=== PATIENT | female | born 1935 | race Caucasian/White ===

== ENCOUNTER → 2023-04-12 10:59 | Outpatient (REF) | payer MEDICARE, SELFPAY | LOC: HWRAD 10:59 | PROVIDERS: ATTENDING PHYSICIAN Internal Medicine; FAMILY PHYSICIAN Family Medicine | DX: Z12.31 Encounter for screening mammogram for malignant neoplasm of breast (principal); Z13.820 Encounter for screening for osteoporosis; Z78.0 Asymptomatic menopausal state | CPT/HCPCS: 77063; 77067; 77080 ==

== ENCOUNTER → 2023-08-01 10:55 | Outpatient (REF) | payer OTHER, SELFPAY | LOC: HWRAD 10:55 | PROVIDERS: ATTENDING PHYSICIAN Family Medicine | DX: M54.50 Low back pain, unspecified (principal) | CPT/HCPCS: 72110 ==

== ENCOUNTER → 2024-01-22 12:52 | Outpatient (REF) | payer OTHER, SELFPAY | LOC: RAD 12:52 | PROVIDERS: ATTENDING PHYSICIAN Family Medicine; REFERRING PHYSICIAN Nurse Practitioner Adult Health | DX: N64.4 Mastodynia (principal); R07.81 Pleurodynia; S29.9XXA Unspecified injury of thorax, initial encounter | CPT/HCPCS: 71101; 76642 ==

== ENCOUNTER → 2024-05-09 11:53 | Outpatient (REF) | payer OTHER, SELFPAY | LOC: HWWDC 11:53 | PROVIDERS: ATTENDING PHYSICIAN Family Medicine | DX: Z12.31 Encounter for screening mammogram for malignant neoplasm of breast (principal) | CPT/HCPCS: 77063; 77067 ==

== ENCOUNTER 2024-10-11 09:17 | Emergency (ER) | payer OTHER, SELFPAY ==
[2024-10-11 09:22] VITALS: BP 157/64
[2024-10-11 10:04] VITALS: BMI 23.4
--- NOTE | 2024-10-11 11:40 | ED.GENMED ---
History of Present Illness
General
Chief Complaint: Musculo-Skeletal Complaint
Source: patient
Time Seen by Provider: 10/11/24 10:25
History of Present Illness
History of Present Illness:
89-year-old female presents to the emergency room for evaluation of pain in her right rib cage and right hip. Patient associates the pain with a syncopal episode she had about 5 to 6 days ago. Patient states she was in her yard speaking with a
neighbor when she began to feel dizzy. She ultimately passed out and evidently fell to the ground. No chest pain or shortness of breath. Patient denies any previous episodes of passing out. She did not experience much pain in the thorax or right
hip immediately but it has been increasing in intensity over the past few days to the point now where she has difficulty getting around. She denies any fever or chills. Patient does take Eliquis because of atrial fibrillation and has been
compliant with it.
Past History
Past History
ED Past Medical History: HTN, Hypercholesterolemia, Hypothyroidism and Other (MVP)
ED Past Surgical History: Orthopedic
Social History
Tobacco: Non-smoker
Personal:
Living: with family
Employment: Retired
Phy Exam
Physical Exam
Physical Exam:
General: Awake, Alert, Oriented X3. No acute distress. Appears stated age
Vitals: unremarkable
Head: Atraumatic
Eyes: Pupils equal, EOMI
Throat: Airway intact, no exudates
Neck: Trachea midline
Chest: There is point tenderness to palpation over the right lateral rib cage approximately over the 8th and 9th rib. No crepitance.
Lungs: Clear and equal b/l
Heart: Regular rate, no murmurs
Abd: Soft, Nontender, No pulsatile mass
Back: No thoracic or lumbar pain to palpation or percussion. No CVA tenderness to percussion
Neuro: Cranial nerves intact, muscle strength equal bilaterally, cerebellar exam normal
Skin: Warm, dry, no rash
Extremities: pulses equal b/l, no edema
Course
Orders/Labs/Results
Orders:
Orders
10/11/24 10:12
CR Hip - RT w/wo Pel 2-3 Vw* Urgent
Comment:
Reason For Exam: pain after syncope/fall
Include a pelvis x-ray?: Yes
CR Ribs-right 3 Vw W/pa Chest* Urgent
Comment:
Reason For Exam: pain after syncope/fall
10/11/24 11:38
Electrocardiogram (*1) Urgent
Reason for Study: Syncope
EKG- Treatment ONCE
10/11/24 11:39
Cardiac Monitoring- Treatment ONCE
10/11/24 11:43
Lidocaine [Lidocaine 4% Patch] 1 patch TOPICAL NOW STA
Apply Lidocaine patch(s) to:: r thorax
10/11/24 12:03
Complete Blood Count/With Diff Urgent
Comprehensive Metabolic Panel Urgent
Abnormal Lab Results
10/11/24
12:03
Hgb 10.5 L g/dL
(12.0-16.0)
Hct 35.2 L %
(37.0-47.0)
MCV 77.4 L fL
(81.0-99.0)
MCH 23.1 L pg
(27.0-31.0)
MCHC 29.8 L g/dL
(33.0-37.0)
RDW 15.9 H %
(11.5-14.5)
Absolute Lymphs (auto) 0.8 L 10^3/uL
(1.2-3.4)
Neutrophils % 81.8 H %
(42.2-75.2)
Lymphocytes % 10.6 L %
(20.5-51.1)
Glucose 104 H mg/dl
(70-99)
10/11/24 12:03
10/11/24 12:03
Vital Signs
Initial and Last Documented VS:
Initial Vital Signs
Temp Pulse Resp BP Pulse Ox
98.3 F 55 16 157/64 98
10/11/24 09:22 10/11/24 09:22 10/11/24 09:22 10/11/24 09:22 10/11/24 09:22
Last Documented Vital Signs
Temp Pulse Resp BP Pulse Ox
98.3 F 56 22 178/51 96
10/11/24 09:22 10/11/24 11:58 10/11/24 11:58 10/11/24 11:56 10/11/24 11:58
MDM/Problems Addressed
Differential Diagnosis Includes:
Rib fracture, pneumothorax, chest wall contusion, hip fracture, bursitis
MDM/Problems Addressed:
Presents with right chest pain right hip pain. She had a fall several days ago. Pain increasing over time. Physical exam shows some tenderness palpation but is otherwise benign. Imaging shows no acute abnormality. Labs are reassuring. Will
treat the patient with Tylenol, ibuprofen and lidocaine patches. She felt better after treatment here. Stable for discharge and outpatient follow-up. Given contact information for Dr. Hicks.
*Pulse Oximetry
SaO2: 98
Oxygen Mode of Delivery: Room air
Patient hypoxic: no
*Critical Care Note
Total Time (30-74mins, 75-104mins- exclusive of procedures): Not Applicable
ED Attending Note
-
Portions of this chart may have been created with voice recognition software.� Occasional wrong word or��sound alike� substitutions may have occurred due to the inherent limitations of voice recognition software.
Discharge Plan
Departure
Patient Disposition: Home (Routine Discharge)
Date of Disposition: 10/11/24
Time of Disposition: 13:00
Patient with high blood pressure during this ER visit?: Yes
Condition: Good
Discharge Problem:
Strain of chest wall, Greater trochanteric bursitis of right hip
Instructions: Costochondritis, Hip Pain ED
Prescriptions:
No Action
ascorbic acid (vitamin C) [Vitamin C] 500 MG tablet
500 mg PO DAILY
atenolol 50 MG tablet
50 mg PO DAILY
omega-3 fatty acids-fish oil 1 EACH capsule
1 ea PO BID
Calcium With D
500 mg PO DAILY
Folic Acid
800 mg PO BID
Levothyroxine
88 mcg PO 6XW
Rx Instructions:
does not take on sundays
multivitamin Tablet
1 tab PO DAILY
atorvastatin 40 mg Tablet
40 mg PO DAILY
ascorbic acid (vitamin C) [Vitamin C] 500 mg Tablet Extended Release
1,000 mg PO Q12H
cinnamon bark [Cinnamon] 500 mg Capsule
1,000 mg PO DAILY
cholecalciferol (vitamin D3) [Vitamin D3] 50 mcg (2,000 unit) Capsule
50 mcg PO DAILY
Eliquis 2.5 mg Tablet
2.5 mg PO BID
melatonin 3 mg Tablet
3 mg PO HS PRN (Reason: insomnia)
Cepacol Sore Throat (vasu-men) 15-3.6 mg Lozenge
1 alex PO Q4HPRN PRN (Reason: sore throat/cough) Qty: 16 0RF
docusate sodium 100 mg Capsule
100 mg PO BID Qty: 20 0RF
oxycodone 5 mg Tablet
5 mg PO Q4HPRN PRN (Reason: moderate pain) Qty: 12 0RF
Referrals:
Emory Hicks MD [Active, Anesthesiology]
Yair Johansen Jr., DO [Family Provider, Internal Medicine]
Activity Restrictions/Additional Instructions:
You can take 650mg of Tylenol and 200mg of ibuprofen for pain. Call Dr. Hicks's office for an appointment.
Interventions
Interventions:
*Risk Screen - Suicide Last Done: 10/11/24 09:22
*Neglect/Abuse Screening Last Done: 10/11/24 09:22
*Nursing Disposition Last Done: 10/11/24 13:14
ED-Musculoskeletal Assessment Last Done: 10/11/24 10:10
Discharge Date and Time
Discharge Date/Time: 10/11/24 13:15
Print Language: BAHAMIAN
[2024-10-11 11:56] VITALS: BP 178/51
[2024-10-11 12:14] LABS: Hematocrit 35.2 % (37.0-47.0); Hemoglobin 10.5 g/dL (12.0-16.0); Mean Corp Hgb Conc. 29.8 g/dL (33.0-37.0); Mean Corpuscular Volume 77.4 fL (81.0-99.0); Nucleated Red Blood Cells % 0 %; Platelet Count 313 10^3/uL (130-400); Red Cell Dist. Width 15.9 % (11.5-14.5)
[2024-10-11] MEDS: LIDOCAINE 4% PATCH 1 PATCH TOPICAL (12:19)
[2024-10-11 12:32] LABS: ALT (SGPT) 15 U/L (0-35); AST (SGOT) 21 U/L (14-36); Albumin 4.3 g/dl (3.5-5.0); Alkaline Phosphatase 89 U/L (38-126); Blood Urea Nitrogen 16 mg/dl (7-17); Calcium 8.8 mg/dl (8.4-10.2); Carbon Dioxide 28 mmol/L (22-30); Chloride 105 mmol/L (98-107); Estimated Creatinine Clearance 44 ml/min; Glucose 104 mg/dl (70-99); Potassium 4.3 mmol/L (3.5-5.1); Sodium 138 mmol/L (135-145); Total Protein 6.5 g/dl (6.3-8.2); eGFR > 60.00
== END 2024-10-11 13:15 | disposition home or self-care (01) ==
LOC: EMR 09:17
PROVIDERS: EMERGENCY PHYSICIAN Emergency Medicine; FAMILY PHYSICIAN Family Medicine
DX: S29.011A Strain of muscle and tendon of front wall of thorax, initial encounter (principal); M70.61 Trochanteric bursitis, right hip; I48.91 Unspecified atrial fibrillation; I10 Essential (primary) hypertension; E78.00 Pure hypercholesterolemia, unspecified; I34.1 Nonrheumatic mitral (valve) prolapse; E03.9 Hypothyroidism, unspecified; Z79.01 Long term (current) use of anticoagulants; X58.XXXA Exposure to other specified factors, initial encounter
CPT/HCPCS: 99284; 71101; 73502; 80053; 85025; 93005

== ENCOUNTER 2024-10-17 12:12 | Inpatient (IN) | payer OTHER, SELFPAY ==
[2024-10-12] VITALS (10 sets, daily range): BP systolic 125–177; BP diastolic 46–101; BMI 23.1; BMI 22.4
[2024-10-12] MEDS: TYLENOL 650 MG PO ×2 (18:00→23:09)
[2024-10-12] MEDS: VALIUM INJECTION 2 MG IV (18:00)
[2024-10-12 18:28] LABS: Hematocrit 32.6 % (37.0-47.0); Hemoglobin 10.0 g/dL (12.0-16.0); Mean Corp Hgb Conc. 30.7 g/dL (33.0-37.0); Mean Corpuscular Volume 76.3 fL (81.0-99.0); Platelet Count 301 10^3/uL (130-400); Red Cell Dist. Width 15.9 % (11.5-14.5)
[2024-10-12 18:53] LABS: Blood Urea Nitrogen 24 mg/dl (7-17); Calcium 8.5 mg/dl (8.4-10.2); Carbon Dioxide 23 mmol/L (22-30); Chloride 109 mmol/L (98-107); Estimated Creatinine Clearance 54 ml/min; Glucose 93 mg/dl (70-99); Potassium 4.4 mmol/L (3.5-5.1); Sodium 137 mmol/L (135-145); eGFR > 60.00
--- NOTE | 2024-10-12 19:58 | ED.GENMED ---
History of Present Illness
General
Chief Complaint: Musculo-Skeletal Complaint
Source: patient
Exam Limitations: none
Time Seen by Provider: 10/12/24 17:11
Nursing documentation reviewed up to this point in time: agreed with
History of Present Illness
History of Present Illness:
Patient presents to ED secondary to worsening right lower back pain over the past 4 days. Patient was evaluated in ED yesterday and discharged home with pain medication, which has not helped the patient. Denies fever or chills. Denies new trauma.
Denies loss of sensation or weakness. Denies urinary or bowel incontinence. Patient does state that she has sciatica pain from time to time, but states that are symptoms are worse and making it difficult for her to ambulate, despite use of her
cane.
Past History
Past History
ED Past Medical History: HTN, Hypercholesterolemia, Hypothyroidism and Other (MVP)
ED Past Surgical History: Orthopedic
Social History
Tobacco: Non-smoker
Personal:
Living: with family
Employment: Retired
Review of Systems
Review of Systems
Allergies reviewed?: Yes
Constitutional: Reports no symptoms
ABD/GI: Reports no symptoms; Denies nausea or vomiting
Musculoskeletal: Reports back pain
Skin: Reports no symptoms
Neurological: Reports no symptoms; Denies weakness
Phy Exam
Physical Exam
Physical Exam:
Physical Exam
General: mild painful distress, not acutely ill. afebrile
Head: nc/at. eomi
Neck: supple. no meningeal signs.
Heart: s1/s2 regular rate and rhythm.
Lungs: no acute respiratory distress. clear bilaterally
Abdomen: normal bowel sounds. not tender.
Back: no midline tenderness. mild right lower back/buttock tenderness to palpation. hip nontender to palpation.
Neuro: alert and oriented x 3. no focal neurological deficits
Skin: no rash
Psychiatric: well kept. interactive and cooperative
Extremities: no edema. no calf tenderness.
Course
Orders/Labs/Results
Orders:
Orders
10/12/24 Breakfast
Regular
At Your Request: Limited Participation
10/12/24 17:46
CT Pelvis W/o Iv Contrast Urgent
Comment:
Reason For Exam: right lower/hip pain
10/12/24 17:47
Acetaminophen [Tylenol] 650 mg PO NOW STA
diazePAM [Valium Injection] 2 mg IV NOW STA
10/12/24 18:12
Basic Metabolic Panel Urgent
Complete Blood Count/No Diff Urgent
10/12/24 20:34
Apixaban [Eliquis] 2.5 mg PO NOW STA
10/12/24 21:23
Admit/Transfer Patient As Directed
Co-Sign Provider:
Level of Care: Observation services
Assign to:: Telemetry
Physician / Group: Nguyễn
Diagnosis: Bursitis / Piriformis Syndrome
Reason for Telemetry: Syncope
Date to Stop Telemetry: 10/14/24
Time to Stop Telemetry: 11:00
10/12/24 21:24
Code Status As Directed
Resuscitation Status: Full Code
PRN Pain Medication Management As Directed
May give lesser potent ordered pain med per pt: Yes
preference::
Protocol:: Medication orders for pain may be administered in a
manner that supports deferring to patient preference
when the pt is:
- Requesting an ordered lesser potent pain medication.
Least to most potent pain medications are defined
as: acetaminophen < NSAID < tramadol < opioids
(morphine, oxycodone, hydromorphone).
- Requesting a lesser dose of the same medication IF
ORDERED.
- Requesting a less intrusive route of administration
if both routes are prescribed by the provider (PO <
IV).
10/12/24 21:35
PRN Pain Medication Management As Directed
May give lesser potent ordered pain med per pt: Yes
preference::
Protocol:: Medication orders for pain may be administered in a
manner that supports deferring to patient preference
when the pt is:
- Requesting an ordered lesser potent pain medication.
Least to most potent pain medications are defined
as: acetaminophen < NSAID < tramadol < opioids
(morphine, oxycodone, hydromorphone).
- Requesting a lesser dose of the same medication IF
ORDERED.
- Requesting a less intrusive route of administration
if both routes are prescribed by the provider (PO <
IV).
10/12/24 22:38
Acetaminophen [Tylenol] 650 mg PO Q4HPRN PRN
Ibuprofen [Motrin] 400 mg PO TID
Ketorolac [Toradol] 10 mg IV Q6HPRN PRN
10/12/24 22:38
ESR [Erythrocyte Sed Rate] Routine
TSH Reflex To Free T4 Routine
Activity As Directed
Activity Level: Ambulate
With Assistance
Heat Application As Directed
Apply heat therapy device to (location):: R buttocks / hip
Device Frequency setting:: 20 minute cycles
Device temperature setting:: Moderate: 100 F (38 C)
I/O [Intake/ Output] As Directed
Frequency: Per unit guidelines
Vital Signs As Directed
Frequency: Per unit guidelines
PT Consult [Pt Eval And Treat] Routine
Activity Level: Ambulate
With Assistance
10/13/24 08:00
Apixaban [Eliquis] 2.5 mg PO BID
Atenolol [Tenormin] 50 mg PO DAILY
10/14/24 11:00
DC Protocol for Telemetry ONCE
Abnormal Lab Results
10/12/24
18:12
Hgb 10.0 L g/dL
(12.0-16.0)
Hct 32.6 L %
(37.0-47.0)
MCV 76.3 L fL
(81.0-99.0)
MCH 23.4 L pg
(27.0-31.0)
MCHC 30.7 L g/dL
(33.0-37.0)
RDW 15.9 H %
(11.5-14.5)
Chloride 109 H mmol/L
(98-107)
BUN 24 H mg/dl
(7-17)
10/12/24 18:12
10/12/24 18:12
Vital Signs
Initial and Last Documented VS:
Initial Vital Signs
Temp Pulse Resp BP Pulse Ox
98.2 F 58 16 143/88 99
10/12/24 16:52 10/12/24 16:52 10/12/24 16:52 10/12/24 16:52 10/12/24 16:52
Last Documented Vital Signs
Temp Pulse Resp BP Pulse Ox
97.8 F 68 13 151/71 99
10/12/24 22:00 10/12/24 22:11 10/12/24 22:11 10/12/24 21:30 10/12/24 22:00
MDM/Problems Addressed
MDM/Problems Addressed:
CT pelvis ordered secondary to patient's persistent pain, which did not reveal any acute findings. Unfortunately, patient still exhibiting significant pain and difficulty bearing weight. As such, patient will be admitted for further eval and
treatment.
*Pulse Oximetry
SaO2: 95
Oxygen Mode of Delivery: Room air
Patient hypoxic: no
*Critical Care Note
Total Time (30-74mins, 75-104mins- exclusive of procedures): Not Applicable
ED Attending Note
-
Portions of this chart may have been created with voice recognition software.� Occasional wrong word or��sound alike� substitutions may have occurred due to the inherent limitations of voice recognition software.
Discharge Plan
Departure
Patient Disposition: Admit
Date of Disposition: 10/12/24
Time of Disposition: 20:35
Admit to: Med/Surg
Presentation/result/management discussed w/ accepting MD/DO: Hospitalist
Discharge Problem:
Intractable back pain
Interventions
Interventions:
*Risk Screen - Suicide Last Done: 10/12/24 22:15
*General Assessment Last Done: 10/12/24 16:52
*Neglect/Abuse Screening Last Done: 10/12/24 22:15
*ED- Fall Risk Assessment Last Done: 10/12/24 16:52
*Nursing Disposition Last Done: 10/12/24 22:15
ED-Musculoskeletal Assessment Last Done: 10/12/24 16:52
Discharge Date and Time
Discharge Date/Time: 10/12/24 22:39
[2024-10-12] MEDS: ELIQUIS 2.5 MG PO (20:56)
--- NOTE | 2024-10-12 21:27 | HPS.HSE ---
Family Physician
-
Family Physician: Yair Johansen Jr.
Chief Complaint
-
R Hip Pain
History of Present Illness
Patient is an 89y F with PMH significant for hypertension, hypothyroidism and PA-Fib (occurred post-op only) who presents to ED complaining of right hip pain x 2 days. Patient states that she had a syncopal episode one week ago after gardening
outside and standing up to talk with a neighbor. Patient was told that she did not fall or impact the ground as the neighbor caught her and lowered her gently. She regained consciousness after moments. Patient felt fairly well for several days
thereafter - though she notes that she was 'taking it easy'.
Monday evening she woke to use the bathroom and noted sudden and severe pain in the R buttocks / lateral hip area. She was able to get to the bathroom and back and fell back to sleep. She again 'took it easy' on ; however, her pain did
not seem to improve. The following AM (Monday) her pain persisted and she presented to the ED for further evaluation. She denies any additional fall, injury, trauma, syncope, etc. Evaluation in the ED was unremarkable including normal x-rays of
the hip / pelvis.
Patient was discharged to home; however, her pain continued / progressed prompting her to return again this evening for further evaluation.
Medical History
Past Medical History
Past Medical History: Reports Other
Additional Past Medical History:
Hypertension
Hypothyroidism
Osteoporosis
Colon Polyps / Tubular Adenoma
Paroxysmal / Post-Op Atrial Fibrillation
Past Surgical History: Reports Other
Additional Past Surgical History:
Appendectomy
Thyroidectomy
Left Lumpectomy
Partial Hysterectomy
Left Ankle ORIF
Right Humerus ORIF
Social History
Tobacco: Non-smoker
Alcohol: None
Drug: None
Family History
Family History: Not pertinent
Allergies / Home Medications
Allergies reflects when Allergies were last updated in [employer]
Home Medications with original date entered in [employer]
Allergy/Medication List:
Allergies
Allergy/AdvReac Type Severity Reaction Status Date / Time
Cephalosporins Allergy Pt unsure Verified 10/12/24 16:51
of allergy
chlorpheniramine (From Allergy Tongue Verified 10/12/24 16:51
Contac Cold-Flu Day and Swelling
Night)
codeine Allergy nausea/vomi Verified 10/12/24 16:51
ting
morphine Allergy NAUSEA,VOMI Verified 10/12/24 16:51
TING
Penicillins Allergy hives/rash Verified 10/12/24 16:51
phenylephrine (From Contac Allergy Tongue Verified 10/12/24 16:51
Cold-Flu Day and Night) Swelling
pramoxine Allergy Rash Verified 10/12/24 16:51
Sulfa (Sulfonamide Allergy Rash Verified 10/12/24 16:51
Antibiotics)
sulfite Allergy Rash to Verified 10/12/24 16:51
sulfates
Home Medications
Folic Acid 800 mg PO DAILY 08/19/09
Levothyroxine 88 mcg PO DAILY 08/19/09
ascorbic acid (vitamin C) 500 mg tablet (Vitamin C) 1,000 mg PO DAILY 08/19/09
atenolol 50 mg tablet 50 mg PO DAILY 08/19/09
omega-3 fatty acids-fish oil 300 mg-1,000 mg capsule 1 ea PO BID 08/19/09
apixaban 2.5 mg tablet (Eliquis) 2.5 mg PO BID 10/23/21
atorvastatin 40 mg tablet 40 mg PO DAILY 10/23/21
cholecalciferol (vitamin D3) 50 mcg (2,000 unit) capsule (Vitamin D3) 50 mcg PO DAILY 10/23/21
multivitamin 1 tab PO DAILY 10/23/21
biotin 5,000 mcg chewable tablet 5,000 mcg PO DAILY 10/12/24
cyanocobalamin (vitamin B-12) 1,000 mcg tablet 1,000 mcg PO DAILY 10/12/24
Review of Systems
-
History Source: Patient
A 12 point ROS was completed and negative except as noted: Yes
Constitutional: Denies Fever or Chills
Respiratory: Denies Cough or Trouble Breathing
Cardiac: Denies Chest Pain or Palpitations
Abdomen/GI: Denies Abdominal Pain, Nausea, Vomiting or Diarrhea
: Denies Dysuria or Frequency
Musculoskeletal: Reports Joint Pain and Muscle Pain; Denies Edema
Neurological: Denies Dizzy or Headache
Psych: Denies Depression or Anxiety
Physical Exam
Vital Signs
Vital Signs
Temp Pulse Resp BP Pulse Ox
98.2 F 66 18 173/53 99
10/12/24 16:52 10/12/24 21:15 10/12/24 21:15 10/12/24 21:00 10/12/24 21:15
Physical Exam
General: Other (89y F in no acute distress.)
HEENT: Moist mucous membranes
Respiratory: Clear; No Wheezes, Rales or Rhonchi
Cardiac: S1/S2 and Regular Rhythm; No Murmur
GI: Soft, Non Tender, Non Distended and Normal Bowel Sounds
Musculoskeletal: No Clubbing, No Cyanosis, No Edema and Other (Pinpoint tenderness over mid-buttocks / piriformis area on the R as well as over the R greater trochanter region. )
Neuro: AO x 3
Laboratory Results
-
10/12/24 18:12
10/12/24 18:12
Impression/Plan
-
A/P: Patient is an 89y F with PMH significant for hypertension and hypothyroidism who presents to ED complaining of R hip pain x several days.
Right Hip Pain
Piriformis Syndrome
Right Greater Trochanteric Bursitis
- Observe overnight for further evaluation and treatment.
- NSAIDs ATC for short course, application of heat, etc.
- Tylenol / Toradol PRN.
- PT eval in the AM.
- Follow for improvement in symptoms.
- Consider ortho eval - inpatient v outpatient for possible injection, etc if symptoms worsen or persist.
Syncope
- Probable vasovagal syncope after working in the garden all day and then standing to speak with her neighbor.
- No events since that time.
- Monitor on telemetry overnight - though I suspect this will be unremarkable.
- Follow for any new / recurrent symptoms.
Benign Hypertension
- Stable. Continue atenolol with holding parameters.
Paroxysmal Atrial Fibrillation
- Stable. Continue atenolol and Eliquis.
Hypothyroidism
- Stable. Continue current T4 replacement.
- Update TFTs.
DVT Prophylaxis: On Eliquis
Code Status: Full
[2024-10-12] MEDS: MOTRIN 400 MG PO (23:53)
[2024-10-12] MEDS: MELATONIN 5 MG PO (23:53)
[2024-10-13] VITALS (8 sets, daily range): BP systolic 102–176; BP diastolic 44–68; PULSE 54
[2024-10-13] MEDS: DILAUDID 0.25 MG IV (02:16)
[2024-10-13] MEDS: SYNTHROID 88 MCG PO (06:30)
[2024-10-13] MEDS: TYLENOL 650 MG PO ×4 (06:31→21:07)
[2024-10-13] MEDS: TENORMIN 50 MG PO (09:24)
[2024-10-13] MEDS: PROTONIX 40 MG PO (09:24)
[2024-10-13] MEDS: ULTRAM 25 MG PO ×2 (09:24→22:55)
[2024-10-13] MEDS: ELIQUIS 2.5 MG PO ×2 (09:24→21:08)
[2024-10-13] MEDS: MOTRIN PO (09:25)
--- NOTE | 2024-10-13 09:52 | W.PN.HOSP.TC ---
Today's Communication/Plan
-
see a/p
Assessment / Plan
Assessment / Plan
Physical Exam
General: no acute distress, appears comfortable at this time
HEENT: Moist mucous membranes
Respiratory: Clear; No Wheezes, Rales or Rhonchi
Cardiac: S1/S2 and Regular Rhythm; No Murmur
GI: Soft, Non Tender, Non Distended and Normal Bowel Sounds
Musculoskeletal: No Clubbing, No Cyanosis, No Edema and Other (Pinpoint tenderness over mid-buttocks / piriformis area on the R as well as over the R greater trochanter region.)
Neuro: AO x 3 conversant coherent
Psych: calm
A/P: Patient is an 89y F with PMH significant for hypertension and hypothyroidism who presents to ED complaining of R hip pain x several days.
Right Hip Pain
Piriformis Syndrome
Right Greater Trochanteric Bursitis
Possible Neuropathy, pt reports hx sciatica
- Observe overnight for further evaluation and treatment.
- NSAIDs ATC for short course, application of heat, etc.
- Tylenol / Tramadol PRN.
- PT/OT eval appreciated home services
- Gabapentin 100 mg TID
-check [facility] X-ray
Syncope
- Probable vasovagal syncope after working in the garden all day and then standing to speak with her neighbor.
- No events since that time.
- Monitor on telemetry
Benign Hypertension
- Stable. Continue atenolol with holding parameters.
Paroxysmal Atrial Fibrillation
- Stable. Continue atenolol and Eliquis.
Hypothyroidism
- Stable. Continue current T4 replacement.
- Updated TFTs notes mild TSH elevation but normal T4, repeat in 1 month recommended
DVT Prophylaxis: On Eliquis
Code Status: Full
I spent a total of 40 minutes with the patient or on the floor. More than 50% of this time involved counseling and coordination of care.
Anticipated Discharge: 24 - 48 hours
Subjective/Interval History
-
Date of Service: October 13, 2024
no acute distress, sitting up comfortably in chair, reports improvement in RLE pain but not resolved.
Objective Data
-
Vital Signs:
Vital Signs
Temp Pulse Resp BP Pulse Ox
97.9 F 62 16 176/62 97
10/13/24 07:27 10/13/24 09:24 10/13/24 07:27 10/13/24 09:24 10/13/24 07:27
I&O
10/12/24 10/13/24 10/14/24
06:59 06:59 06:59
Intake Total 480 / 480
Output Total 200 / 200
Balance 280 / 280
[2024-10-13] MEDS: NEURONTIN 100 MG PO ×2 (15:03→21:08)
[2024-10-13] MEDS: MOTRIN 400 MG PO ×2 (15:03→21:07)
--- NOTE | 2024-10-13 15:19 | CM ---
Patient seen at bedside in [facility]. Patient states that she lives alone in a one story home in [facility] Patient has a cane at home and she uses the [email or web address] pharmacy. Patient given OBS/CHAVEZ form and signed form placed on chart. Patient
indicated that she has a daughter and son both live at a distance. Patient PCP is Dr. Johansen. CM will continue to follow for discharge planning needs.
Plan; home with no needs vs home with VN.
[2024-10-13] MEDS: MELATONIN 5 MG PO (21:08)
[2024-10-14] VITALS (7 sets, daily range): BP systolic 126–157; BP diastolic 44–62; PULSE 58
[2024-10-14] MEDS: TYLENOL 650 MG PO ×5 (00:10→15:36)
[2024-10-14] MEDS: SYNTHROID 88 MCG PO (06:04)
--- NOTE | 2024-10-14 07:04 | W.PN.HOSP.TC ---
Today's Communication/Plan
-
pain control
PT/OT
trial low dose baclofen
cont gabapentin ibuprofen Tylenol
Assessment / Plan
Assessment / Plan
Physical Exam
General: no acute distress, appears comfortable at this time
HEENT: Moist mucous membranes
Respiratory: Clear; No Wheezes, Rales or Rhonchi
Cardiac: S1/S2 and Regular Rhythm; No Murmur
GI: Soft, Non Tender, Non Distended and Normal Bowel Sounds
Musculoskeletal: No Clubbing, No Cyanosis, No Edema and Other (Pinpoint tenderness over mid-buttocks / piriformis area on the R as well as over the R greater trochanter region.)
Neuro: AO x 3 conversant coherent
Psych: calm
A/P: Patient is an 89y F with PMH significant for hypertension and hypothyroidism who presents to ED complaining of R hip pain x several days.
Right Hip Pain
Piriformis Syndrome
Right Greater Trochanteric Bursitis
Possible Neuropathy, pt reports hx sciatica
- Tylenol NSAIDs ATC for short course, application of heat, etc.
- Tramadol PRN.
- PT/OT eval appreciated home services
- Gabapentin 100 mg TID
- Baclofen 2.5 mg TID
- Lumbar X-ray appreciated no acute abn's
Syncope
- Probable vasovagal syncope after working in the garden all day and then standing to speak with her neighbor.
- No events since that time.
- Monitor on telemetry
Benign Hypertension
- Stable. Continue atenolol with holding parameters.
Paroxysmal Atrial Fibrillation
- Stable. Continue atenolol and Eliquis.
Hypothyroidism
- Stable. Continue current T4 replacement.
- Updated TFTs notes mild TSH elevation but normal T4, repeat in 1 month recommended
DVT Prophylaxis: On Eliquis
Code Status: Full
I spent a total of 40 minutes with the patient or on the floor. More than 50% of this time involved counseling and coordination of care.
Anticipated Discharge: 24 - 48 hours
Subjective/Interval History
-
Date of Service: October 14, 2024
Reports some improvement in pain/mobility. No pain at rest.
Objective Data
-
Vital Signs:
Vital Signs
Temp Pulse Resp BP Pulse Ox
97.5 F 51 18 126/55 95
10/14/24 03:24 10/14/24 03:24 10/14/24 03:24 10/14/24 03:24 10/14/24 03:24
I&O
10/13/24 10/14/24 10/15/24
06:59 06:59 06:59
Intake Total 480 / 480 1140 / 1140
Output Total 200 / 200
Balance 280 / 280 1140 / 1140
[2024-10-14] MEDS: PROTONIX 40 MG PO (07:59)
[2024-10-14] MEDS: TENORMIN PO (08:06)
[2024-10-14] MEDS: MOTRIN 400 MG PO ×3 (08:09→22:17)
[2024-10-14] MEDS: ELIQUIS 2.5 MG PO ×2 (08:09→20:06)
[2024-10-14] MEDS: NEURONTIN 100 MG PO ×3 (08:10→22:18)
[2024-10-14] MEDS: LIORESAL 2.5 MG PO ×2 (15:36→22:17)
[2024-10-14] MEDS: MELATONIN 5 MG PO (22:19)
[2024-10-14] MEDS: TYLENOL PO (22:46)
[2024-10-15] VITALS (8 sets, daily range): BP systolic 125–170; BP diastolic 56–66; PULSE 63; O2SAT 97
[2024-10-15] MEDS: TYLENOL PO ×3 (01:15→20:29)
[2024-10-15] MEDS: SYNTHROID 88 MCG PO (05:12)
--- NOTE | 2024-10-15 06:59 | W.PN.HOSP.TC ---
Today's Communication/Plan
-
pain control
Gabapentin switched to 300 mg HS and baclofen canceled d/t daytime sleepiness/lethargy
PT/OT out of bed to chair
trial steroids Prednisone 40 mg daily started
Assessment / Plan
Assessment / Plan
Physical Exam
General: no acute distress, appears comfortable at this time
HEENT: Moist mucous membranes
Respiratory: Clear; No Wheezes, Rales or Rhonchi
Cardiac: S1/S2 and Regular Rhythm; No Murmur
GI: Soft, Non Tender, Non Distended and Normal Bowel Sounds
Musculoskeletal: No Clubbing, No Cyanosis, No Edema and Other (Pinpoint tenderness over mid-buttocks / piriformis area on the R as well as over the R greater trochanter region.)
Neuro: AO x 3 conversant coherent
Psych: calm
A/P: Patient is an 89y F with PMH significant for hypertension and hypothyroidism who presents to ED complaining of R hip pain x several days.
Right Hip Pain
Piriformis Syndrome
Right Greater Trochanteric Bursitis
Possible Neuropathy, pt reports hx sciatica
- Tylenol NSAIDs ATC for short course, application of heat, etc.
- Tramadol PRN.
- PT/OT eval appreciated home services
- Gabapentin 100 mg TID switched to 300 mg HS d/t daytime sedation/lethargy
- Baclofen 2.5 mg TID attempted but discontinued d/t daytime sedation/lethargy
- Lumbar X-ray appreciated no acute abn's
- trial steroids started 40 mg daily
Syncope
- Probable vasovagal syncope after working in the garden all day and then standing to speak with her neighbor.
- No events since that time.
- Monitor on telemetry
Benign Hypertension
- Stable. Continue atenolol with holding parameters.
Paroxysmal Atrial Fibrillation
- Stable. Continue atenolol and Eliquis.
Hypothyroidism
- Stable. Continue current T4 replacement.
- Updated TFTs notes mild TSH elevation but normal T4, repeat in 1 month recommended
DVT Prophylaxis: On Eliquis
Code Status: Full
I spent a total of 40 minutes with the patient or on the floor. More than 50% of this time involved counseling and coordination of care.
Anticipated Discharge: Within 24 hours
Subjective/Interval History
-
Date of Service: October 15, 2024
Reporting lethargy weakness. Right hip pain persists with exertion, resolves with rest.
Objective Data
-
Labs:
Laboratory Results
10/15/24
06:00
WBC Pending
Hgb Pending
Hct Pending
Plt Count Pending
Sodium Pending
Potassium Pending
Chloride Pending
Carbon Dioxide Pending
BUN Pending
Creatinine Pending
Glucose Pending
Calcium Pending
Vital Signs:
Vital Signs
Temp Pulse Resp BP Pulse Ox
98.3 F 59 18 141/63 97
10/15/24 03:22 10/15/24 03:22 10/15/24 03:22 10/15/24 03:22 10/15/24 03:22
I&O
10/13/24 10/14/24 10/15/24
06:59 06:59 06:59
Intake Total 480 / 480 1140 / 1140 480 / 480
Output Total 200 / 200
Balance 280 / 280 1140 / 1140 480 / 480
[2024-10-15 08:01] LABS: Hematocrit 32.6 % (37.0-47.0); Hemoglobin 9.7 g/dL (12.0-16.0); Mean Corp Hgb Conc. 29.8 g/dL (33.0-37.0); Mean Corpuscular Volume 78.4 fL (81.0-99.0); Platelet Count 302 10^3/uL (130-400); Red Cell Dist. Width 16.1 % (11.5-14.5)
[2024-10-15] MEDS: LIDOCAINE 4% PATCH 1 PATCH TOPICAL (08:12)
[2024-10-15] MEDS: ELIQUIS 2.5 MG PO ×2 (08:13→20:29)
[2024-10-15] MEDS: PROTONIX 40 MG PO (08:13)
[2024-10-15] MEDS: LIORESAL 2.5 MG PO (08:13)
[2024-10-15] MEDS: NEURONTIN 100 MG PO (08:14)
[2024-10-15] MEDS: TYLENOL 650 MG PO ×4 (08:15→23:15)
[2024-10-15] MEDS: MOTRIN 400 MG PO ×3 (08:15→22:01)
[2024-10-15] MEDS: TENORMIN PO (08:16)
[2024-10-15 08:42] LABS: Blood Urea Nitrogen 18 mg/dl (7-17); Calcium 8.2 mg/dl (8.4-10.2); Carbon Dioxide 25 mmol/L (22-30); Chloride 110 mmol/L (98-107); Estimated Creatinine Clearance 44 ml/min; Glucose 92 mg/dl (70-99); Magnesium 2.3 mg/dl (1.6-2.3); Potassium 4.6 mmol/L (3.5-5.1); Sodium 141 mmol/L (135-145); eGFR > 60.00
--- NOTE | 2024-10-15 10:13 | VNURNOTE ---
Home Health Liaison met with patient at bedside to discuss [facility] nurse/therapy, visits, schedule and homebound status. Patient is agreeable and understands that visits at home will be 2-3 x per week to assess and teach medical management. Patient
aware and agreeable to pet policy.
Patient is aware that [facility] will contact them for start of care in 1-2 days after discharge from .
[facility] referral completed in [facility].
--- NOTE | 2024-10-15 10:48 | CM ---
Spoke with patient she requested [facility] .
[facility] Liaison notified of referral .
She said her will drive her home.
PLAN Home with [facility]
[2024-10-15] MEDS: DELTASONE 40 MG PO (13:29)
[2024-10-15 14:26] LABS: Iron 26 ug/dl (37-170)
[2024-10-15 14:35] LABS: Total Iron Binding Capacity 407 ug/dl (265-497)
[2024-10-15 15:03] LABS: Ferritin 7.8 ng/ml (11.1-264.0)
[2024-10-15 15:34] LABS: Folate > 20.0 ng/ml (2.76-20); Vitamin B12 372 pg/ml (239-931)
[2024-10-15] MEDS: NEURONTIN 300 MG PO (20:32)
[2024-10-15] MEDS: MELATONIN 5 MG PO (22:01)
[2024-10-16] VITALS (7 sets, daily range): BP systolic 98–186; BP diastolic 53–68; PULSE 60; O2SAT 97
[2024-10-16] MEDS: ULTRAM 25 MG PO ×2 (01:54→21:47)
[2024-10-16] MEDS: TYLENOL 650 MG PO ×5 (04:00→19:05)
[2024-10-16] MEDS: SYNTHROID 88 MCG PO (04:00)
--- NOTE | 2024-10-16 07:15 | W.PN.HOSP.TC ---
Today's Communication/Plan
-
cont pain control
steroids
PT/OT
check Lumbar MRI
B12 Iron supplementation
Assessment / Plan
Assessment / Plan
Physical Exam
General: no acute distress, appears comfortable at this time
HEENT: Moist mucous membranes
Respiratory: Clear; No Wheezes, Rales or Rhonchi
Cardiac: S1/S2 and Regular Rhythm; No Murmur
GI: Soft, Non Tender, Non Distended and Normal Bowel Sounds
Musculoskeletal: No Clubbing, No Cyanosis, No Edema. Tenderness over mid-buttocks / piriformis area on the R as well as over the R greater trochanter region. Paraspinal tenderness
Neuro: AO x 3 conversant coherent
Psych: calm
A/P: Patient is an 89y F with PMH significant for hypertension and hypothyroidism who presents to ED complaining of R hip pain x several days.
Right Hip Pain
Piriformis Syndrome
Right Greater Trochanteric Bursitis
Possible Neuropathy, pt reports hx sciatica
- Tylenol NSAIDs ATC for short course, application of heat, etc.
- Tramadol PRN.
- PT/OT eval appreciated home services
- Gabapentin 100 mg TID switched to 300 mg HS d/t daytime sedation/lethargy
- Baclofen 2.5 mg TID attempted but discontinued d/t daytime sedation/lethargy
- Lumbar X-ray appreciated no acute abn's
- trial steroids started 40 mg daily, no improvement noted so far, symptoms seem be worsening, reports new onset numbness RLE raphael, pain shooting from back rt hip down RLE
-checking Lumbar MRI
Syncope
- Probable vasovagal syncope after working in the garden all day and then standing to speak with her neighbor.
- No events since that time.
- Monitor on telemetry
Benign Hypertension
- Stable. Continue atenolol with holding parameters.
Paroxysmal Atrial Fibrillation
- Stable. Continue atenolol and Eliquis.
-consistently NSR, ok to dc radiation monitor
Hypothyroidism
- Stable. Continue current T4 replacement.
- Updated TFTs notes mild TSH elevation but normal T4, repeat in 1 month recommended
Iron Deficiency Anemia
B12 low normal levels
-Iron supplementation
-B12 supplementation
PT/OT appreciated Home services
DVT Prophylaxis: On Eliquis
Code Status: Full
discussed with patient and patient's Viet
I spent a total of 40 minutes with the patient or on the floor. More than 50% of this time involved counseling and coordination of care.
Anticipated Discharge: 24 - 48 hours
Subjective/Interval History
-
Date of Service: October 16, 2024
Rt hip pain persists with exertion, now notes new numbness RLE raphael. Pain appears to be worsening.
Objective Data
-
Labs:
Laboratory Results
10/16/24
06:00
WBC Pending
Hgb Pending
Hct Pending
Plt Count Pending
Sodium Pending
Potassium Pending
Chloride Pending
Carbon Dioxide Pending
BUN Pending
Creatinine Pending
Glucose Pending
Calcium Pending
Vital Signs:
Vital Signs
Temp Pulse Resp BP Pulse Ox
97.6 F 64 16 159/64 95
10/16/24 03:14 10/16/24 03:14 10/16/24 03:14 10/16/24 03:14 10/16/24 03:14
I&O
10/15/24 10/16/24 10/17/24
06:59 06:59 06:59
Intake Total 480 / 480 870 / 870
Balance 480 / 480 870 / 870
[2024-10-16 07:57] LABS: Hematocrit 31.5 % (37.0-47.0); Hemoglobin 9.4 g/dL (12.0-16.0); Mean Corp Hgb Conc. 29.8 g/dL (33.0-37.0); Mean Corpuscular Volume 78.4 fL (81.0-99.0); Platelet Count 323 10^3/uL (130-400); Red Cell Dist. Width 16.2 % (11.5-14.5)
[2024-10-16 08:25] LABS: Blood Urea Nitrogen 22 mg/dl (7-17); Calcium 8.3 mg/dl (8.4-10.2); Carbon Dioxide 23 mmol/L (22-30); Chloride 110 mmol/L (98-107); Estimated Creatinine Clearance 51 ml/min; Glucose 90 mg/dl (70-99); Magnesium 2.3 mg/dl (1.6-2.3); Potassium 4.5 mmol/L (3.5-5.1); Sodium 141 mmol/L (135-145); eGFR > 60.00
[2024-10-16] MEDS: BenGay-Like 1 APPLIC TOPICAL ×4 (09:24→21:46)
[2024-10-16] MEDS: ELIQUIS 2.5 MG PO ×2 (09:26→19:05)
[2024-10-16] MEDS: PROTONIX 40 MG PO (09:27)
[2024-10-16] MEDS: DELTASONE 40 MG PO (09:27)
[2024-10-16] MEDS: MOTRIN 400 MG PO ×3 (09:28→21:47)
[2024-10-16] MEDS: TENORMIN 50 MG PO (09:28)
--- NOTE | 2024-10-16 10:09 | CM ---
Patient she requested [facility] .
[facility] Liaison notified of referral .
Pain medicine as needed.
She said her will drive her home.
PLAN Home with [facility]
[2024-10-16] MEDS: FEOSOL 325 MG PO (13:22)
[2024-10-16] MEDS: VITAMIN B-12 1000 MCG PO (13:22)
[2024-10-16] MEDS: NEURONTIN 300 MG PO (21:46)
[2024-10-16] MEDS: SENOKOT-S 1 TABLET PO (21:47)
[2024-10-16] MEDS: MELATONIN 5 MG PO (21:47)
[2024-10-17] VITALS (7 sets, daily range): BP systolic 146–196; BP diastolic 59–105; PULSE 53; O2SAT 96
[2024-10-17] MEDS: TYLENOL PO (01:08)
[2024-10-17] MEDS: ULTRAM 25 MG PO (03:13)
[2024-10-17] MEDS: TYLENOL 650 MG PO ×5 (03:14→19:43)
[2024-10-17] MEDS: SYNTHROID 88 MCG PO (03:14)
--- NOTE | 2024-10-17 07:08 | W.PN.HOSP.TC ---
Today's Communication/Plan
-
cont pain control
TLSO brace prn comfort
taper steroids
PT/OT
tentatively planned for JORDAN Mon 10/21 with Shannonvandanatasneem david Sat 10/19 morning in preparation for procedure
Assessment / Plan
Assessment / Plan
Physical Exam
General: no acute distress, appears comfortable at this time
HEENT: Moist mucous membranes
Respiratory: Clear; No Wheezes, Rales or Rhonchi
Cardiac: S1/S2 and Regular Rhythm; No Murmur
GI: Soft, Non Tender, Non Distended and Normal Bowel Sounds
Musculoskeletal: No Clubbing, No Cyanosis, No Edema. Right buttocks/paraspinal tenderness. Positive Straight Leg test RLE. Right raphael numbness
Neuro: AO x 3 conversant coherent
Psych: calm
A/P: Patient is an 89y F with PMH significant for hypertension and hypothyroidism who presents to ED complaining of R hip pain x several days.
Right Hip/buttocks Pain radiating down RLE
Disc Herniation L4/5
Exacerbation Sciatica, known hx
Severe Lumbar Spinal Stenosis
Piriformis Syndrome, Right Greater Trochanteric Bursitis Less likely
- Tylenol NSAIDs ATC for short course, application of heat, etc.
- Tramadol PRN.
- PT/OT eval appreciated home services
- Gabapentin 100 mg TID switched to 300 mg HS d/t daytime sedation/lethargy
- Baclofen 2.5 mg TID attempted but discontinued d/t daytime sedation/lethargy
- Lumbar X-ray appreciated no acute abn's
- trial steroids started 40 mg daily, unclear benefit, steroid induced confusion agitation noted, tapered to 30 mg daily
Lumbar MRI appreciated
-severe Lumbar Spinal Canal Stenosis
-Rt posterolateral disc extrusion and extruded disc fragment L4/5 encroaching Rt L4 nerve root
Discussed w/ neurosx, surgical intervention not warranted given intact strength, can re-consider evaluation if not improvement with JORDAN (epidural steroid injection)
Discussed with IR, Yogi needs to be on hold for 4 doses (two days) before JORDAN. Earliest date JORDAN may be performed at this time is Monday10/21/24. Yogi to cont for now, Hold 10/19/24 Morning SCD dvt ppx.
TLSO brace prn for comfort
Syncope
- Probable vasovagal syncope after working in the garden all day and then standing to speak with her neighbor.
- No new events since that time.
- No syncope events during stay so far.
Hypertension
- Continue atenolol with holding parameters.
- monitor and titrate antihypertensive regimen as necessary.
- Pain and steroids likely to contribute to elevated BP values
- Would not treat aggressively unless symptomatic
Paroxysmal Atrial Fibrillation
-Stable. Continue atenolol and Eliquis.
-consistently NSR
Hypothyroidism
- Stable. Continue current T4 replacement.
- Updated TFTs notes mild TSH elevation but normal T4, repeat in 1 month recommended
Iron Deficiency Anemia
B12 low normal levels
-Iron supplementation
-B12 supplementation
PT/OT appreciated Home services
DVT Prophylaxis: On Eliquis
Code Status: Full
I spent a total of 47 minutes with the patient or on the floor. More than 50% of this time involved counseling and coordination of care.
Anticipated Discharge: > 48 hours
Subjective/Interval History
-
Date of Service: October 17, 2024
RLE hip pain persists with exertion. Patient also notes feeling confused. Mild moderate agitation noted, suspect steroid induced. Re-directable however. Patient notably calmer and more pleasant following extensive discussion of her case, all
questions answered.
Objective Data
-
Labs:
Laboratory Results
10/17/24
06:39
WBC Pending
Hgb Pending
Hct Pending
Plt Count Pending
Sodium Pending
Potassium Pending
Chloride Pending
Carbon Dioxide Pending
BUN Pending
Creatinine Pending
Glucose Pending
Calcium Pending
Vital Signs:
Vital Signs
Temp Pulse Resp BP Pulse Ox
98.4 F 91 16 175/105 97
10/17/24 03:39 10/17/24 03:39 10/17/24 03:39 10/17/24 03:39 10/17/24 03:39
I&O
10/16/24 10/17/24 10/18/24
06:59 06:59 06:59
Intake Total 870 / 870 1480 / 1480
Balance 870 / 870 1480 / 1480
[2024-10-17 08:22] LABS: Hematocrit 29.6 % (37.0-47.0); Hemoglobin 8.8 g/dL (12.0-16.0); Mean Corp Hgb Conc. 29.7 g/dL (33.0-37.0); Mean Corpuscular Volume 79.1 fL (81.0-99.0); Platelet Count 329 10^3/uL (130-400); Red Cell Dist. Width 16.2 % (11.5-14.5)
[2024-10-17 09:06] LABS: Blood Urea Nitrogen 27 mg/dl (7-17); Calcium 8.2 mg/dl (8.4-10.2); Carbon Dioxide 24 mmol/L (22-30); Chloride 111 mmol/L (98-107); Estimated Creatinine Clearance 51 ml/min; Glucose 82 mg/dl (70-99); Magnesium 2.2 mg/dl (1.6-2.3); Potassium 4.5 mmol/L (3.5-5.1); Sodium 140 mmol/L (135-145); eGFR > 60.00
[2024-10-17] MEDS: DELTASONE 40 MG PO (10:06)
[2024-10-17] MEDS: BenGay-Like 1 APPLIC TOPICAL ×4 (10:06→21:30)
[2024-10-17] MEDS: PROTONIX 40 MG PO (10:07)
[2024-10-17] MEDS: SENOKOT-S 1 TABLET PO ×2 (10:08→21:28)
[2024-10-17] MEDS: VITAMIN B-12 1000 MCG PO (10:09)
[2024-10-17] MEDS: FEOSOL 325 MG PO (10:09)
[2024-10-17] MEDS: MOTRIN 400 MG PO ×3 (10:09→21:28)
[2024-10-17] MEDS: ELIQUIS 2.5 MG PO ×2 (10:09→19:43)
[2024-10-17] MEDS: MIRALAX 17 GRAMS PO (10:10)
[2024-10-17] MEDS: TENORMIN 50 MG PO (10:19)
[2024-10-17 13:55] LABS: INR 1.05; PT 14.2 Sec (11.4-14.6)
--- NOTE | 2024-10-17 16:08 | CM ---
Pt changed to inpatient status . IMM copy given to pt.IMM reviewed with pt and signed IMM n chart.
Pt medicated for pain.
Pt requested [facility] which was set up by liaison [facility] Cisneros
PLAN Home with [facility]
[2024-10-17] MEDS: NEURONTIN 300 MG PO (21:28)
[2024-10-17] MEDS: MELATONIN 5 MG PO (21:28)
[2024-10-18] MEDS: TYLENOL PO ×2 (01:02→04:02)
[2024-10-18] MEDS: SYNTHROID 88 MCG PO (06:16)
[2024-10-18 07:55] VITALS: BP 131/56
[2024-10-18] MEDS: BenGay-Like 1 APPLIC TOPICAL ×4 (08:30→21:24)
[2024-10-18] MEDS: ELIQUIS 2.5 MG PO ×2 (08:31→20:23)
[2024-10-18] MEDS: FEOSOL 325 MG PO (08:31)
[2024-10-18] MEDS: TYLENOL 650 MG PO ×5 (08:31→23:10)
[2024-10-18] MEDS: SENOKOT-S 1 TABLET PO (08:31)
[2024-10-18] MEDS: VITAMIN B-12 1000 MCG PO (08:31)
[2024-10-18] MEDS: DELTASONE 30 MG PO (08:32)
[2024-10-18] MEDS: MIRALAX 17 GRAMS PO (08:32)
[2024-10-18] MEDS: PROTONIX 40 MG PO (08:33)
[2024-10-18] MEDS: TENORMIN 50 MG PO (08:33)
[2024-10-18] MEDS: MOTRIN 400 MG PO ×3 (08:33→21:24)
[2024-10-18 10:39] LABS: Hematocrit 32.2 % (37.0-47.0); Hemoglobin 9.7 g/dL (12.0-16.0); Mean Corp Hgb Conc. 30.1 g/dL (33.0-37.0); Mean Corpuscular Volume 78.7 fL (81.0-99.0); Platelet Count 345 10^3/uL (130-400); Red Cell Dist. Width 16.8 % (11.5-14.5)
[2024-10-18 10:59] LABS: Blood Urea Nitrogen 29 mg/dl (7-17); Calcium 8.7 mg/dl (8.4-10.2); Carbon Dioxide 25 mmol/L (22-30); Chloride 109 mmol/L (98-107); Estimated Creatinine Clearance 38 ml/min; Glucose 120 mg/dl (70-99); Magnesium 2.0 mg/dl (1.6-2.3); Potassium 4.2 mmol/L (3.5-5.1); Sodium 141 mmol/L (135-145); eGFR > 60.00
[2024-10-18 12:07] VITALS: BP 137/59; PULSE 56
--- NOTE | 2024-10-18 15:44 | CM ---
Reinforced pt that she is inpatient . IMM letter given.
PT indicates out pt PT . Pt said she can not drive and is frail.
[facility] set up for her as requested.
Pain meds as needed.
sander and polisher list given.
PLAN Home with [facility]
[2024-10-18 15:55] VITALS: BP 101/61
--- NOTE | 2024-10-18 16:13 | W.PN.HOSP.TC ---
Today's Communication/Plan
-
remains anxious about pain
will consider JORDAN if medically warranted
continue pain control
possible discharge tomorrow
Assessment / Plan
Assessment / Plan
Right Hip/buttocks Pain radiating down RLE
Rt posterolateral disc extrusion and extruded disc fragment L4/5 encroaching Rt L4 nerve root
Exacerbation Sciatica, known hx
Severe Lumbar Spinal Stenosis
Piriformis Syndrome, Right Greater Trochanteric Bursitis Less likely
- Tylenol NSAIDs ATC for short course, application of heat, etc.
- Tramadol PRN.
- PT/OT eval appreciated home services
- Gabapentin 100 mg TID switched to 300 mg HS d/t daytime sedation/lethargy
- Baclofen 2.5 mg TID attempted but discontinued d/t daytime sedation/lethargy
- trial steroids started 40 mg daily, unclear benefit, steroid induced confusion agitation noted, tapered to 30 mg daily
- MR lumbar spine images reviewed
- Dr johnson discussed with neuro sx and no indication for sx.
- JODRAN will be considered if pain not improved , currently patient able to walk with walker. Patient questioning why JORDAN is not warranted and discussed that it is solely meant for pain control and currently with systemic pain medication patient have
control on symptoms.
Syncope
- Probable vasovagal syncope after working in the garden all day and then standing to speak with her neighbor.
- No new events since that time.
- No syncope events during stay so far.
Essential Hypertension
- Continue atenolol with holding parameters.
- monitor and titrate antihypertensive regimen as necessary.
- Pain and steroids likely to contribute to elevated BP values
- Would not treat aggressively unless symptomatic
Paroxysmal Atrial Fibrillation
-Stable. Continue atenolol and Eliquis.
-consistently NSR
Hypothyroidism
- Stable. Continue current T4 replacement.
- Updated TFTs notes mild TSH elevation but normal T4, repeat in 1 month recommended
Iron Deficiency Anemia
B12 low normal levels
-Iron supplementation
-B12 supplementation
DVT Prophylaxis: On Eliquis
Code Status: Full
Discussion with patient regarding etiology and prognosis for pain. Patient remains anxious about, not able to take care of herself although clearly demonstrates with physical therapy appropriate strength and capability. No family in the area to
provide help. apparently is frail. Visiting nurse services has been arranged by case management. I will re-evaluate tomorrow for potential discharge, patient of note questioning for need of JORDAN although with current level of pain control
JORDAN may not be warranted
Total time spent : 54 mins
Anticipated Discharge: 24 - 48 hours
Subjective/Interval History
-
Date of Service: October 18, 2024
pain is improved
have some numbness at leg
Objective Data
-
Labs:
Laboratory Results
10/18/24
10:29
WBC 13.2 H
Hgb 9.7 L
Hct 32.2 L
Plt Count 345
Sodium 141
Potassium 4.2
Chloride 109 H
Carbon Dioxide 25
BUN 29 H
Creatinine 0.8
Glucose 120 H
Calcium 8.7
Vital Signs:
Vital Signs
Temp Pulse Resp BP Pulse Ox
97.8 F 65 16 131/56 95
10/18/24 07:55 10/18/24 08:33 10/18/24 07:55 10/18/24 08:33 10/18/24 10:48
I&O
10/17/24 10/18/24 10/19/24
06:59 06:59 06:59
Intake Total 1480 / 1480 1060 / 1060
Balance 1480 / 1480 1060 / 1060
Review of Systems
-
Respiratory: Reports No Symptoms
Cardiac: Reports No Symptoms
Abdomen/GI: Reports No Symptoms
Physical Exam
-
General: Negative Appears in Distress
HEENT: Negative Oxygen
Neuro: Awake, Alert and Oriented
Psych: Calm
[2024-10-18] MEDS: SENOKOT-S PO (20:22)
[2024-10-18] MEDS: NEURONTIN 300 MG PO (21:24)
[2024-10-18] MEDS: MELATONIN 5 MG PO (21:24)
[2024-10-18 23:23] VITALS: BP 155/62
[2024-10-19] MEDS: TYLENOL 650 MG PO ×5 (04:59→21:37)
[2024-10-19] MEDS: SYNTHROID 88 MCG PO (05:00)
[2024-10-19 07:10] VITALS: BP 167/71
[2024-10-19] MEDS: DELTASONE 30 MG PO (07:48)
[2024-10-19] MEDS: PROTONIX 40 MG PO (07:48)
[2024-10-19] MEDS: BenGay-Like 1 APPLIC TOPICAL ×4 (07:49→21:37)
[2024-10-19] MEDS: FEOSOL 325 MG PO (07:49)
[2024-10-19] MEDS: ELIQUIS 2.5 MG PO (07:49)
[2024-10-19] MEDS: VITAMIN B-12 1000 MCG PO (07:49)
[2024-10-19] MEDS: MOTRIN 400 MG PO ×3 (07:49→21:37)
[2024-10-19] MEDS: TENORMIN 50 MG PO (07:49)
[2024-10-19 07:53] LABS: Hematocrit 28.0 % (37.0-47.0); Hemoglobin 8.4 g/dL (12.0-16.0); Mean Corp Hgb Conc. 30.0 g/dL (33.0-37.0); Mean Corpuscular Volume 77.8 fL (81.0-99.0); Platelet Count 316 10^3/uL (130-400); Red Cell Dist. Width 16.5 % (11.5-14.5)
[2024-10-19] MEDS: MIRALAX PO (07:54)
[2024-10-19] MEDS: SENOKOT-S PO ×2 (07:55→19:23)
[2024-10-19 08:51] LABS: Blood Urea Nitrogen 25 mg/dl (7-17); Calcium 8.1 mg/dl (8.4-10.2); Carbon Dioxide 26 mmol/L (22-30); Chloride 109 mmol/L (98-107); Estimated Creatinine Clearance 51 ml/min; Glucose 78 mg/dl (70-99); Magnesium 2.1 mg/dl (1.6-2.3); Potassium 4.1 mmol/L (3.5-5.1); Sodium 140 mmol/L (135-145); eGFR > 60.00
--- NOTE | 2024-10-19 09:28 | W.PN.HOSP.TC ---
Today's Communication/Plan
-
JORDAN on monday
discharge home HH after
continue steroids/pain meds
continue PT
Assessment / Plan
Assessment / Plan
Right Hip/buttocks Pain radiating down RLE
Rt posterolateral disc extrusion and extruded disc fragment L4/5 encroaching Rt L4 nerve root
Exacerbation Sciatica, known hx
Severe Lumbar Spinal Stenosis
Piriformis Syndrome, Right Greater Trochanteric Bursitis Less likely
- Tylenol NSAIDs ATC for short course, application of heat, etc.
- Tramadol PRN.
- PT/OT eval appreciated home services
- Gabapentin 100 mg TID switched to 300 mg HS d/t daytime sedation/lethargy
- Baclofen 2.5 mg TID attempted but discontinued d/t daytime sedation/lethargy
- trial steroids started 40 mg daily, unclear benefit, steroid induced confusion agitation noted, tapered to 30 mg daily
- MR lumbar spine images reviewed
- Dr johnson discussed with neuro sx and no indication for sx.
- Patient continues to complain pain and inabiltiy to get around, able to do actiivity with PT. no good family support to help patient and not qualified for rehab. Discussed JORDAN on monday and potentially may not help her symptoms. patient wanting
to move forward with JORDAN. Eliquis held from evening today.
Syncope
- Probable vasovagal syncope after working in the garden all day and then standing to speak with her neighbor.
- No new events since that time.
- No syncope events during stay so far.
Essential Hypertension
- Continue atenolol with holding parameters.
- monitor and titrate antihypertensive regimen as necessary.
- Pain and steroids likely to contribute to elevated BP values
- Would not treat aggressively unless symptomatic
Paroxysmal Atrial Fibrillation
-Stable. Continue atenolol and Eliquis.
-consistently NSR
Hypothyroidism
- Stable. Continue current T4 replacement.
- Updated TFTs notes mild TSH elevation but normal T4, repeat in 1 month recommended
Iron Deficiency Anemia
B12 low normal levels
-Iron supplementation
-B12 supplementation
DVT Prophylaxis: On Eliquis
Code Status: Full
Discussion with patient regarding etiology and prognosis for pain. Patient remains anxious about, not able to take care of herself although clearly demonstrates with physical therapy appropriate strength and capability. No family in the area to
provide help. apparently is frail. Visiting nurse services has been arranged by case management. I will re-evaluate tomorrow for potential discharge, patient of note questioning for need of JORDAN although with current level of pain control
JORDAN may not be warranted
Total time spent : 54 mins
Anticipated Discharge: 24 - 48 hours
Subjective/Interval History
-
Date of Service: October 19, 2024
continues to complain pain
continues to remain anxious about activity
no constipation/nausea/vomiting
Objective Data
-
Labs:
Laboratory Results
10/19/24
06:04
WBC 9.8
Hgb 8.4 L
Hct 28.0 L
Plt Count 316
Sodium 140
Potassium 4.1
Chloride 109 H
Carbon Dioxide 26
BUN 25 H
Creatinine 0.6
Glucose 78
Calcium 8.1 L
Vital Signs:
Vital Signs
Temp Pulse Resp BP Pulse Ox
98.5 F 65 18 167/71 94
10/19/24 07:10 10/19/24 07:10 10/19/24 07:10 10/19/24 07:10 10/19/24 07:10
I&O
10/18/24 10/19/24 10/20/24
06:59 06:59 06:59
Intake Total 1060 / 1060 960 / 960
Balance 1060 / 1060 960 / 960
Review of Systems
-
Respiratory: Reports No Symptoms
Cardiac: Reports No Symptoms
Abdomen/GI: Reports No Symptoms
Physical Exam
-
General: Pain
HEENT: Negative Oxygen
Neuro: Awake, Alert, Oriented and No Motor Deficits
[2024-10-19 11:34] VITALS: BP 159/64
--- NOTE | 2024-10-19 15:31 | CM ---
Addendum entered by Monica Cotton 10/20/24 10:56:
Late Entry
woods manager received a call from [place] at [facility] at 4:25pm, 10/20/24 and he stated that [facility] received the Rescind notice and [facility] appeal has been closed, patient will be issued a new IMM closer to discharge in case wants to appeal
discharge.
Original Note:
Case management office received a notice that patient was appealing her discharge, behavioral health case manager made Maeve at [facility] aware that patient was not discharged and patient called in error, [facility] requesting a rescind letter which was faxed to [facility]
, patient made aware that rescind notice sent to [facility]. which states 'A new IM/Notice will be issued to patient when discharging'.
Plan; To follow with patient progress.
[2024-10-19 15:34] VITALS: BP 168/63
[2024-10-19] MEDS: APRESOLINE 10 MG IV (16:47)
[2024-10-19 17:25] VITALS: BP 166/68
[2024-10-19] MEDS: ALPRAZOLAM ODT 0.25 MG PO (17:59)
[2024-10-19] MEDS: PROCARDIA XL (EXTENDED RELEASE) 30 MG PO (18:01)
[2024-10-19 18:37] VITALS: BP 114/52
[2024-10-19] MEDS: NEURONTIN 300 MG PO (21:37)
[2024-10-19] MEDS: MELATONIN 5 MG PO (21:37)
[2024-10-19] MEDS: TYLENOL PO (23:08)
[2024-10-19 23:31] VITALS: BP 134/51
[2024-10-20] MEDS: TYLENOL PO ×2 (05:24→23:12)
[2024-10-20] MEDS: SYNTHROID 88 MCG PO (06:10)
[2024-10-20 07:55] VITALS: BP 159/66
--- NOTE | 2024-10-20 08:49 | W.PN.HOSP.TC ---
Today's Communication/Plan
-
for JORDAN tomorrow
make procardia scheduled
continue PT
Assessment / Plan
Assessment / Plan
Right Hip/buttocks Pain radiating down RLE
Rt posterolateral disc extrusion and extruded disc fragment L4/5 encroaching Rt L4 nerve root
Exacerbation Sciatica, known hx
Severe Lumbar Spinal Stenosis
Piriformis Syndrome, Right Greater Trochanteric Bursitis Less likely
- Tylenol NSAIDs ATC for short course, application of heat, etc.
- Tramadol PRN.
- PT/OT eval appreciated home services
- Gabapentin 100 mg TID switched to 300 mg HS d/t daytime sedation/lethargy
- Baclofen 2.5 mg TID attempted but discontinued d/t daytime sedation/lethargy
- trial steroids started 40 mg daily, unclear benefit, steroid induced confusion agitation noted, tapered to 30 mg daily
- MR lumbar spine images reviewed
- Dr johnson discussed with neuro sx and no indication for sx.
- 10/19 Patient continues to complain pain and inabiltiy to get around, able to do actiivity with PT. no good family support to help patient and not qualified for rehab. Discussed JORDAN on monday and potentially may not help her symptoms. patient
wanting to move forward with JORDAN. Eliquis held from evening today.
Syncope
- Probable vasovagal syncope after working in the garden all day and then standing to speak with her neighbor.
- No new events since that time.
- No syncope events during stay so far.
Essential Hypertension
HTN urgency
- Patient SBP in 170s and having headache yesterday
- Continue atenolol with holding parameters.
- added procardial xl 30mg/bid to reigmen
- maintain on iv hydralazine 10mg prn for sbp > 160
Paroxysmal Atrial Fibrillation
-Stable. Continue atenolol and Eliquis.
-consistently NSR
Hypothyroidism
- Stable. Continue current T4 replacement.
- Updated TFTs notes mild TSH elevation but normal T4, repeat in 1 month recommended
Iron Deficiency Anemia
B12 low normal levels
-Iron supplementation
-B12 supplementation
DVT Prophylaxis: On Eliquis
Code Status: Full
Discussion with patient regarding etiology and prognosis for pain. Patient remains anxious about, not able to take care of herself although clearly demonstrates with physical therapy appropriate strength and capability. No family in the area
to provide help. apparently is frail. Visiting nurse services has been arranged by case management. I will re-evaluate tomorrow for potential discharge, patient of note questioning for need of JORDAN although with current level of pain
control JORDAN may not be warranted
10/19 Agained a lengthy discussion about the patient ongoing pain, patient remains anxious and hesitant to do activity with fear. Will go ahead with JORDAN as patient hopeful for some recovery.
Anticipated Discharge: Within 24 hours
Subjective/Interval History
-
Date of Service: October 20, 2024
back pain is better
remains anxious and stressed out
Objective Data
-
Labs:
Laboratory Results
10/20/24
06:00
WBC Pending
Hgb Pending
Hct Pending
Plt Count Pending
Sodium Pending
Potassium Pending
Chloride Pending
Carbon Dioxide Pending
BUN Pending
Creatinine Pending
Glucose Pending
Calcium Pending
Vital Signs:
Vital Signs
Temp Pulse Resp BP Pulse Ox
98.4 F 72 18 159/66 94
10/20/24 07:55 10/20/24 07:55 10/20/24 07:55 10/20/24 07:55 10/20/24 07:55
I&O
10/19/24 10/20/24 10/21/24
06:59 06:59 06:59
Intake Total 960 / 960 1100 / 1100
Balance 960 / 960 1100 / 1100
Review of Systems
-
Respiratory: Reports No Symptoms
Cardiac: Reports No Symptoms
Abdomen/GI: Reports No Symptoms
Physical Exam
-
General: Pain
HEENT: Negative Oxygen
Neuro: Awake, Alert, Oriented and No Motor Deficits
[2024-10-20] MEDS: FEOSOL 325 MG PO (09:19)
[2024-10-20] MEDS: DELTASONE 30 MG PO (09:19)
[2024-10-20] MEDS: MIRALAX 17 GRAMS PO (09:19)
[2024-10-20] MEDS: BenGay-Like 1 APPLIC TOPICAL ×4 (09:19→22:09)
[2024-10-20] MEDS: PROTONIX 40 MG PO (09:19)
[2024-10-20] MEDS: TENORMIN 50 MG PO (09:20)
[2024-10-20] MEDS: VITAMIN B-12 1000 MCG PO (09:20)
[2024-10-20] MEDS: TYLENOL 650 MG PO ×4 (09:20→22:08)
[2024-10-20] MEDS: PROCARDIA XL (EXTENDED RELEASE) 30 MG PO ×2 (09:20→19:37)
[2024-10-20] MEDS: SENOKOT-S 1 TABLET PO ×2 (09:20→19:37)
[2024-10-20] MEDS: MOTRIN 400 MG PO ×3 (09:20→22:09)
[2024-10-20 09:57] LABS: Hematocrit 32.4 % (37.0-47.0); Hemoglobin 9.8 g/dL (12.0-16.0); Mean Corp Hgb Conc. 30.2 g/dL (33.0-37.0); Mean Corpuscular Volume 77.3 fL (81.0-99.0); Platelet Count 361 10^3/uL (130-400); Red Cell Dist. Width 17.1 % (11.5-14.5)
[2024-10-20 10:09] LABS: Blood Urea Nitrogen 23 mg/dl (7-17); Calcium 8.2 mg/dl (8.4-10.2); Carbon Dioxide 24 mmol/L (22-30); Chloride 108 mmol/L (98-107); Estimated Creatinine Clearance 44 ml/min; Glucose 119 mg/dl (70-99); Magnesium 2.0 mg/dl (1.6-2.3); Potassium 3.5 mmol/L (3.5-5.1); Sodium 141 mmol/L (135-145); eGFR > 60.00
[2024-10-20 15:55] VITALS: BP 123/53
[2024-10-20] MEDS: NEURONTIN 300 MG PO (22:08)
[2024-10-20] MEDS: MELATONIN 5 MG PO (22:08)
[2024-10-20 23:16] VITALS: BP 130/48
[2024-10-21] MEDS: TYLENOL PO (05:35)
[2024-10-21] MEDS: SYNTHROID 88 MCG PO (05:57)
[2024-10-21 07:10] VITALS: BP 145/71
--- NOTE | 2024-10-21 08:57 | W.PN.HOSP.TC ---
Today's Communication/Plan
-
for JORDAN of lumbar spine today
dischargeable home with HH after
Assessment / Plan
Assessment / Plan
Right Hip/buttocks Pain radiating down RLE
Rt posterolateral disc extrusion and extruded disc fragment L4/5 encroaching Rt L4 nerve root
Exacerbation Sciatica, known hx
Severe Lumbar Spinal Stenosis
Piriformis Syndrome, Right Greater Trochanteric Bursitis Less likely
- Tylenol NSAIDs ATC for short course, application of heat, etc.
- Tramadol PRN.
- PT/OT eval appreciated home services
- Gabapentin 100 mg TID switched to 300 mg HS d/t daytime sedation/lethargy
- Baclofen 2.5 mg TID attempted but discontinued d/t daytime sedation/lethargy
- trial steroids started 40 mg daily, unclear benefit, steroid induced confusion agitation noted, tapered to 30 mg daily
- MR lumbar spine images reviewed
- Dr johnson discussed with neuro sx and no indication for sx.
- 10/19 Patient continues to complain pain and inabiltiy to get around, able to do actiivity with PT. no good family support to help patient and not qualified for rehab. Discussed JORDAN on monday and potentially may not help her symptoms. patient
wanting to move forward with JORDAN. Eliquis held from evening today.
Syncope
- Probable vasovagal syncope after working in the garden all day and then standing to speak with her neighbor.
- No new events since that time.
- No syncope events during stay so far.
Essential Hypertension
HTN urgency - resolved
- Continue atenolol with holding parameters.
- added procardial xl 30mg/bid to regimen
- maintain on iv hydralazine 10mg prn for sbp > 160
Paroxysmal Atrial Fibrillation
-Stable. Continue atenolol and Eliquis.
-consistently NSR
Hypothyroidism
- Stable. Continue current T4 replacement.
- Updated TFTs notes mild TSH elevation but normal T4, repeat in 1 month recommended
Iron Deficiency Anemia
B12 low normal levels
-Iron supplementation
-B12 supplementation
DVT Prophylaxis: On Eliquis
Code Status: Full
Discussion with patient regarding etiology and prognosis for pain. Patient remains anxious about, not able to take care of herself although clearly demonstrates with physical therapy appropriate strength and capability. No family in the area
to provide help. apparently is frail. Visiting nurse services has been arranged by case management. I will re-evaluate tomorrow for potential discharge, patient of note questioning for need of JORDAN although with current level of pain
control JORDAN may not be warranted
10/19 Agained a lengthy discussion about the patient ongoing pain, patient remains anxious and hesitant to do activity with fear. Will go ahead with JORDAN as patient hopeful for some recovery.
Anticipated Discharge: Today
Subjective/Interval History
-
Date of Service: October 21, 2024
back pain is tolerable
denies of having any issues
Objective Data
-
Labs:
Laboratory Results
10/21/24
08:16
WBC Pending
Hgb Pending
Hct Pending
Plt Count Pending
Sodium Pending
Potassium Pending
Chloride Pending
Carbon Dioxide Pending
BUN Pending
Creatinine Pending
Glucose Pending
Calcium Pending
Vital Signs:
Vital Signs
Temp Pulse Resp BP Pulse Ox
98.4 F 76 16 145/71 95
10/21/24 07:10 10/21/24 07:10 10/21/24 07:10 10/21/24 07:10 10/21/24 07:10
I&O
10/20/24 10/21/24 10/22/24
06:59 06:59 06:59
Intake Total 1100 / 1100 1560 / 1560
Balance 1100 / 1100 1560 / 1560
Review of Systems
-
Respiratory: Reports No Symptoms
Cardiac: Reports No Symptoms
Abdomen/GI: Reports No Symptoms
Physical Exam
-
General: Pain
HEENT: Negative Oxygen
Neuro: Awake, Alert, Oriented and No Motor Deficits
[2024-10-21] MEDS: PROTONIX 40 MG PO (09:06)
[2024-10-21] MEDS: DELTASONE 30 MG PO (09:06)
[2024-10-21] MEDS: BenGay-Like 1 APPLIC TOPICAL ×4 (09:06→21:35)
[2024-10-21] MEDS: MOTRIN 400 MG PO ×3 (09:07→21:34)
[2024-10-21] MEDS: FEOSOL 325 MG PO (09:08)
[2024-10-21] MEDS: VITAMIN B-12 1000 MCG PO (09:08)
[2024-10-21] MEDS: TYLENOL 650 MG PO ×4 (09:08→19:35)
[2024-10-21] MEDS: PROCARDIA XL (EXTENDED RELEASE) 30 MG PO ×2 (09:11→19:34)
[2024-10-21] MEDS: TENORMIN 50 MG PO (09:11)
[2024-10-21] MEDS: MIRALAX PO (09:12)
[2024-10-21] MEDS: SENOKOT-S 1 TABLET PO ×2 (09:12→19:35)
[2024-10-21 09:19] LABS: Hematocrit 31.7 % (37.0-47.0); Hemoglobin 9.7 g/dL (12.0-16.0); Mean Corp Hgb Conc. 30.6 g/dL (33.0-37.0); Mean Corpuscular Volume 77.1 fL (81.0-99.0); Platelet Count 368 10^3/uL (130-400); Red Cell Dist. Width 17.6 % (11.5-14.5)
[2024-10-21 09:52] LABS: Blood Urea Nitrogen 26 mg/dl (7-17); Calcium 8.5 mg/dl (8.4-10.2); Carbon Dioxide 23 mmol/L (22-30); Chloride 108 mmol/L (98-107); Estimated Creatinine Clearance 51 ml/min; Glucose 75 mg/dl (70-99); Magnesium 2.2 mg/dl (1.6-2.3); Potassium 4.2 mmol/L (3.5-5.1); Sodium 139 mmol/L (135-145); eGFR > 60.00
[2024-10-21 12:09] VITALS: BP 111/44
[2024-10-21 15:10] VITALS: BP 146/56
[2024-10-21 16:08] VITALS: BP 153/60; PULSE 65
--- NOTE | 2024-10-21 19:18 | CM ---
IMM given signed on chart.
PT indicated out pt PT . Pt requested [facility] she can not drive at this time.
Referral in for [facility] .
Pt for lumbar injection for pain control.
[place].
PLAN Home with [facility] .
[2024-10-21] MEDS: MELATONIN 5 MG PO (21:34)
[2024-10-21] MEDS: NEURONTIN 300 MG PO (21:34)
[2024-10-21 23:39] VITALS: BP 116/48
[2024-10-22] MEDS: TYLENOL PO ×2 (01:16→05:04)
[2024-10-22] MEDS: SYNTHROID 88 MCG PO (06:02)
[2024-10-22 07:00] VITALS: BP 163/60
[2024-10-22] MEDS: SENOKOT-S PO (07:48)
[2024-10-22] MEDS: MIRALAX PO (07:48)
[2024-10-22] MEDS: BenGay-Like 1 APPLIC TOPICAL ×3 (07:49→17:15)
[2024-10-22] MEDS: PROTONIX 40 MG PO (07:49)
[2024-10-22] MEDS: MOTRIN 400 MG PO ×2 (07:51→15:32)
[2024-10-22] MEDS: VITAMIN B-12 1000 MCG PO (07:51)
[2024-10-22] MEDS: DELTASONE 30 MG PO (07:51)
[2024-10-22] MEDS: FEOSOL 325 MG PO (07:52)
[2024-10-22] MEDS: TYLENOL 650 MG PO ×3 (07:52→15:31)
[2024-10-22] MEDS: TENORMIN 50 MG PO (07:52)
[2024-10-22] MEDS: PROCARDIA XL (EXTENDED RELEASE) 30 MG PO ×2 (07:53→16:31)
[2024-10-22 11:00] VITALS: BP 129/53
[2024-10-22 12:11] VITALS: BP 129/53
--- NOTE | 2024-10-22 14:54 | CM ---
Addendum entered by Sharmila Bass RN 10/23/24 08:24:
[facility] . Forward walker request to [employer] fax [phone] LM with rep Franc [phone].
Addendum entered by Sharmila Bass RN 10/22/24 16:45:
Pt has walker at home requested another walker . PT can not provide with [employer] insurance. Kate Cantu contacted. Clinical script faxed to [facility] [phone].
PLAN Discharge after lumbar injection
Original Note:
Pt stated she is for discharge today after lumbar injection
Pt requested [facility] she can not drive at this time.
Pt said her will drive her home.
IMM signed yesterday on chart
PLAN Home with [facility] .
[2024-10-22 15:00] VITALS: BP 151/64
--- NOTE | 2024-10-22 15:32 | W.PN.HOSP.TC ---
Today's Communication/Plan
-
for lumbar JORDAN today
d/c home HH after
Assessment / Plan
Assessment / Plan
Right Hip/buttocks Pain radiating down RLE
Rt posterolateral disc extrusion and extruded disc fragment L4/5 encroaching Rt L4 nerve root
Exacerbation Sciatica, known hx
Severe Lumbar Spinal Stenosis
Piriformis Syndrome, Right Greater Trochanteric Bursitis Less likely
- Tylenol NSAIDs ATC for short course, application of heat, etc.
- Tramadol PRN.
- PT/OT eval appreciated home services
- Gabapentin 100 mg TID switched to 300 mg HS d/t daytime sedation/lethargy
- Baclofen 2.5 mg TID attempted but discontinued d/t daytime sedation/lethargy
- trial steroids started 40 mg daily, unclear benefit, steroid induced confusion agitation noted, tapered to 30 mg daily
- MR lumbar spine images reviewed
- Dr johnson discussed with neuro sx and no indication for sx.
- 10/19 Patient continues to complain pain and inabiltiy to get around, able to do actiivity with PT. no good family support to help patient and not qualified for rehab. Discussed JORDAN on monday and potentially may not help her symptoms. patient
wanting to move forward with JORDAN. Eliquis held.
Syncope
- Probable vasovagal syncope after working in the garden all day and then standing to speak with her neighbor.
- No new events since that time.
- No syncope events during stay so far.
Essential Hypertension
HTN urgency - resolved
- Continue atenolol with holding parameters.
- added procardial xl 30mg/bid to regimen
- maintain on iv hydralazine 10mg prn for sbp > 160
Paroxysmal Atrial Fibrillation
-Stable. Continue atenolol and Eliquis.
-consistently NSR
Hypothyroidism
- Stable. Continue current T4 replacement.
- Updated TFTs notes mild TSH elevation but normal T4, repeat in 1 month recommended
Iron Deficiency Anemia
B12 low normal levels
-Iron supplementation
-B12 supplementation
DVT Prophylaxis: On Eliquis
Code Status: Full
Discussion with patient regarding etiology and prognosis for pain. Patient remains anxious about, not able to take care of herself although clearly demonstrates with physical therapy appropriate strength and capability. No family in the area
to provide help. apparently is frail. Visiting nurse services has been arranged by case management. I will re-evaluate tomorrow for potential discharge, patient of note questioning for need of JORDAN although with current level of pain
control JORDAN may not be warranted
10/19 Agained a lengthy discussion about the patient ongoing pain, patient remains anxious and hesitant to do activity with fear. Will go ahead with JORDAN as patient hopeful for some recovery.
Anticipated Discharge: Today
Subjective/Interval History
-
Date of Service: October 22, 2024
Resting comfortably in bed
Pain somewhat controlled at this point
No other reported problems
Objective Data
-
Vital Signs:
Vital Signs
Temp Pulse Resp BP Pulse Ox
97.8 F 61 16 129/53 96
10/22/24 11:00 10/22/24 11:00 10/22/24 11:00 10/22/24 11:00 10/22/24 11:00
I&O
10/21/24 10/22/24 10/23/24
06:59 06:59 06:59
Intake Total 1560 / 1560 840 / 840
Balance 1560 / 1560 840 / 840
Review of Systems
-
Respiratory: Reports No Symptoms
Cardiac: Reports No Symptoms
Abdomen/GI: Reports No Symptoms
Physical Exam
-
General: Pain
HEENT: Negative Oxygen
Neuro: Awake, Alert, Oriented and No Motor Deficits
[2024-10-22 18:10] VITALS: BP 155/59; BP_SYST 67
--- NOTE | 2024-10-22 19:01 | PTCARENOTE ---
pt received from IR after successful JORDAN. bandaid intact. IV taken out and pt discharged home shortly after.
--- NOTE | 2024-10-24 16:08 | W.DCSUMMARY ---
Discharge Summary
Discharge Data
Date of Admission: 10/17/24
Date of Discharge: 10/22/24
-
Pending Results: No
Hospital Course
Discharging Physician : Dr Victoriano Clark
Disposition : Home with home care
Primary care physician : Dr Yair Johansen
Principal Discharge diagnosis :
Right hip pain
Severe lumbar spinal stenosis
Sciatica
Ambulatory dysfunction
Preadmission syncope
Hypertensive urgency
Chronic Discharge diagnosis :
Essential hypertension
Paroxysmal atrial fibrillation on Eliquis
Hypothyroidism
Iron deficiency anemia
Vitamin B12 deficiency
Hospital Course :
Patient is a 89-year-old female with past medical history came to ER with new onset of lower back and right hip pain. Patient was apparently dealing with right hip pain for 2 days and was planned to have outpatient CT scan, apparently patient had a
syncopal episode. Patient had CT pelvis which did not show any acute abnormalities. Patient was started on symptomatic care for pain control. Patient continued to have significant pain and ambulatory dysfunction from it. A follow-up MRI lumbar
spine was done which showed L4-L5 level significant spinal stenosis/foraminal stenosis with posterior intervertebral disc extrusion causing nerve root impingement. In light of known improving symptoms with pain control a lumbar epidural steroid
injection was discussed and patient underwent uneventful procedure before discharge. Patient was able to participate with physical therapy and was deemed appropriate for home level care. Patient was discharged home with home health care at this
point.
Important imaging findings :
None
Procedure findings :
None
Discharge Plan
-
Patient Disposition: Home with Home Care
Discharge Diagnosis/Procedures: Lumbar spinal stenosis, Back pain
Condition: Fair
Diet: Regular
Activity: As tolerated
Driving Restrictions: As prior to admission
Bathing Restrictions: OK to Shower
Referrals:
[facility] [Provider Group]
Referral Note: Call for evaluation for lumbar spinal stenosis
Cimorelli,Yair C. Jr., DO [Family Provider, Internal Medicine] - in one week
Prescriptions:
New
polyethylene glycol 3350 17 gram Powder In Packet
17 g PO DAILY Qty: 30 0RF
ibuprofen 400 mg Tablet
400 mg PO TID Qty: 10 0RF
Rx Instructions:
STOP ON 10/24 evening
nifedipine 30 mg Tablet Extended Release
30 mg PO BID Qty: 60 1RF
tramadol 50 mg Tablet
25 mg PO Q6HPRN PRN (Reason: moderate severe pain) Qty: 15 0RF
levothyroxine 88 mcg Tablet
88 mcg PO DAILY @ 0600 Qty: 30 0RF
gabapentin 300 mg Capsule
300 mg PO HS Qty: 15 0RF
prednisone 10 mg Tablet
See Rx Instructions .ROUTE .COMPLEX Qty: 9 0RF
Rx Instructions:
Take By Mouth:
20 mg daily x3 days, 10 mg daily x3 days,
Continued
ascorbic acid (vitamin C) [Vitamin C] 500 MG tablet
1,000 mg PO DAILY
atenolol 50 MG tablet
50 mg PO DAILY
omega-3 fatty acids-fish oil 1 EACH capsule
1 ea PO BID
Folic Acid
800 mg PO DAILY
Levothyroxine
88 mcg PO DAILY
Rx Instructions:
does not take on sundays
multivitamin Tablet
1 tab PO DAILY
atorvastatin 40 mg Tablet
40 mg PO DAILY
cholecalciferol (vitamin D3) [Vitamin D3] 50 mcg (2,000 unit) Capsule
50 mcg PO DAILY
Eliquis 2.5 mg Tablet
2.5 mg PO BID
cyanocobalamin (vitamin B-12) 1,000 mcg Tablet
1,000 mcg PO DAILY
biotin 5,000 mcg Tablet,Chewable
5,000 mcg PO DAILY
Discharge Orders:
Discharge Patient (As Directed); Ordered 10/22/24
Ordered By: Victoriano Clark
Discharge Date and Time
Discharge Date/Time: 10/22/24 19:05
Print Language: WOLOF
== END 2024-10-22 19:05 | disposition home health service (06) | DRG 552 ==
LOC: 4 EAST ACU 12:12
PROVIDERS: Internal Medicine; Radiology Diagnostic Radiology; Radiology Vascular & Interventional Radiology; ADMITTING PHYSICIAN Hospitalist; ATTENDING PHYSICIAN Hospitalist; EMERGENCY PHYSICIAN Emergency Medicine; FAMILY PHYSICIAN Family Medicine
PROC: 3E0R33Z Introduction of Anti-inflammatory into Spinal Canal, Percutaneous Approach (ICD-10-PCS; 2024-10-22)
DX: M51.16 Intervertebral disc disorders with radiculopathy, lumbar region (principal); G57.01 Lesion of sciatic nerve, right lower limb; M70.61 Trochanteric bursitis, right hip; M54.50 Low back pain, unspecified; E89.0 Postprocedural hypothyroidism; E78.00 Pure hypercholesterolemia, unspecified; I10 Essential (primary) hypertension; M48.061 Spinal stenosis, lumbar region without neurogenic claudication; I48.0 Paroxysmal atrial fibrillation; I16.0 Hypertensive urgency; R55 Syncope and collapse; D50.9 Iron deficiency anemia, unspecified; M81.0 Age-related osteoporosis without current pathological fracture; Z79.01 Long term (current) use of anticoagulants; Z86.0101 Personal history of adenomatous and serrated colon polyps; Z88.1 Allergy status to other antibiotic agents; Z88.5 Allergy status to narcotic agent; Z88.0 Allergy status to penicillin; Z88.2 Allergy status to sulfonamides; Z88.8 Allergy status to other drugs, medicaments and biological substances; Z79.890 Hormone replacement therapy; Z90.711 Acquired absence of uterus with remaining cervical stump
CPT/HCPCS: 62323; 72100; 72148; 72192; 80048; 82607; 82728; 82746; 83540; 83550; 83735; 84100; 84439; 84443; 85027; 85610; 85652; 96374; 97110; 97116; 97162; 97166; 97530; 97535; 99285

== ENCOUNTER → 2024-12-27 09:40 | Outpatient (REF) | payer OTHER, SELFPAY | LOC: HWRAD 09:40 | PROVIDERS: ATTENDING PHYSICIAN Family Medicine | DX: R10.11 Right upper quadrant pain (principal) | CPT/HCPCS: 76700 ==

== ENCOUNTER → 2025-01-09 12:56 | Outpatient (REF) | payer OTHER, SELFPAY | LOC: RAD 12:56 | PROVIDERS: ATTENDING PHYSICIAN Internal Medicine; FAMILY PHYSICIAN Family Medicine | DX: I65.23 Occlusion and stenosis of bilateral carotid arteries (principal) | CPT/HCPCS: 93880 ==

== ENCOUNTER → 2025-03-05 09:46 | Outpatient (REF) | payer OTHER, SELFPAY | LOC: PAVMRI 09:46 | PROVIDERS: ATTENDING PHYSICIAN Nurse Practitioner Adult Health; FAMILY PHYSICIAN Family Medicine | DX: K76.9 Liver disease, unspecified (principal) | CPT/HCPCS: 74183; A9575 ==